=== PATIENT | male | born 1990 | race Caucasian/White ===

== ENCOUNTER 2020-09-11 14:19 | Inpatient (IN) | payer OTHER ==
[~2020-09-11] VITALS: Ht 182.9 cm; Wt 137.4 kg
[2020-09-11 14:29] VITALS: Ht 182.9 cm; Wt 137.4 kg
--- NOTE | 2020-09-11 14:37 | NUR ---
PT BIB [facility] FOR GENERALIZED WEAKNESS RECENTLY DIAGNOSED WITH CHF. PT DENIES SOB NOW, HOWEVER EXERTION WITH INCREASED ACTIVITY. LARGE ABD GIRTH NOTED. BLE PITTING EDEMA. PT REPORTS TAKING ELIQUIS "TO HELP SLOW DOWN HEART RATE" MSE COMPLETED BY DR VALERA IV TO BACK OF R FA INSERTED BY [facility] PHARMACY TECH TO ED. PT SITTING IN POSITION OF COMFORT WILL MONITOER
--- NOTE | 2020-09-11 14:41 | NUR ---
LAB AT BEDSIDE FOR BLOOD DRAW
[2020-09-11 14:48] LABS: BASOPHIL % 1.3 % (0.2-1.5); PLATELET COUNT 342 x10^3mcL (152-348)
[2020-09-11 14:50] LABS: RED CELL DISTRIBUTION WIDTH 15.3 % (12.1-16.2)
[2020-09-11 15:27] LABS: CALCIUM 8.3 mg/dL (8.5-10.1); CARBON DIOXIDE 25.6 mmol/L (21-32); CHLORIDE SERUM 100 mmol/L (98-107); CREATININE SERUM 1.3 mg/dL (0.7-1.3); GFR1 > 60 mL/min; GLUCOSE SERUM 117 mg/dL (74-106); POTASSIUM SERUM 4.3 mmol/L (3.5-5.1); SODIUM SERUM 135 mmol/L (136-145)
[2020-09-11 15:29] LABS: ALBUMIN 3.1 g/dL (3.4-5.0); ALKALINE PHOSPHATASE 119 U/L (46-116); ALT/SGPT 41 U/L (16-63); AST/SGOT 26 U/L (15-37); MAGNESIUM 2.2 mg/dL (1.8-2.4); PHOSPHOROUS 4.7 mg/dL (2.5-4.9); TOTAL PROTEIN, SERUM 6.7 g/dL (6.4-8.2); ovalocyte/elliptocyte 1+; rbc morphology (normal/abnorm) ABNORMAL (NORMAL); tear drop cell (dacryocyte) 1+
--- NOTE | 2020-09-11 15:35 | NUR ---
PT C/O R LEG PAIN POST ULTRASOUND, PT GIVEN NORCO 10MG/325MG PO PER DR SAUNDERS VERBAL ORDERS. WILL MONITOR
--- NOTE | 2020-09-11 16:13 | NUR ---
PER PT, PAIN TO R LEG RESOLVED. PT RESTING COMFORTABLY NO DISTRESS ON FULL CM, SINUS TACH AT 100, VSS WILL MONITOR
--- NOTE | 2020-09-11 17:45 | NUR ---
PT LYING IN BED COMFORTABLY WARM BLANKET PROVIDED. NO DISTRESS REMAINS ON FULL CM VSS WILL CONTINUE TO MONITOR
[2020-09-11] MEDS ORDERED: ELIQUIS5 MG PO (19:01)
[2020-09-11] MEDS ORDERED: LISINOPRIL10 MG PO (19:02)
[2020-09-11] MEDS ORDERED: LASIX20 MG PO (19:02)
[2020-09-11] MEDS ORDERED: CARVEDILOL ER40 MG PO (19:03)
--- NOTE | 2020-09-11 19:04 | NUR ---
REPORT GIVEN TO SOBAI ROQUE RESUMING CARE OF PT AT THIS TIME.
--- NOTE | 2020-09-11 19:12 | NUR ---
REPORT RECEIVED FROM MEAGHAN ROQUE TO ASSUME CARE OF PT AT THIS TIME
--- NOTE | 2020-09-11 20:21 | NUR ---
PT IN [facility] RESTING SUPINE, PT REPORTS R THIGH PAIN 03/29, STATING THAT HE "FEELS PINS AND NEEDLES, A BURNING SENSATION, AND THAT MY UPPER THIGH FEELS LIKE IT FILLS UP AND SWELLS AND THIS JUST STARTED THIS LAST THURSDAY WHEN I WAS AT [facility] FOR 4 DAYS." MADE AWARE
--- NOTE | 2020-09-11 22:00 | NUR ---
ADMITTED TO ROOM 256B. NO RESPIRATORY DISTRESS. AA&OX4. RECENT PREAMTURE DEMISE AND VERBALIZED FEELING DEPRESSED THIS PAST YEAR. NO SUICIDAL IDEATION. VERBALIED SLEEP APNEA BUT NO SLEEPSTUDY OF YET. SCHEDULED SOON. NO CP, C/O RIGHTUPPER LEG PAIN X1WEEK. ORIENTED TO ROOM. CALL LIGHT WITHINREACH
[2020-09-12] VITALS (7 sets, daily range): BP systolic 105–122; BP diastolic 70–82
--- NOTE | 2020-09-12 06:00 | NUR ---
PATIENT HAD 6 BEATS RUN OF VTACH. PAGED X3 TIMES AND THEN SPOKE WITH DR. CRUZ, HE WILL FOLLOW UP WITH [facility]. ALSO PT C/O PAIN TO RIGHT THIGH 02/26, NEW ORDER FOR NORCO CARRIED OUT AND GIVEN. PT DIDNT SLEEP WELL, WILL REQUEST SLEEPING PILL FOR TONIGHT IF STILL HERE
[2020-09-12 06:46] LABS: BASOPHIL % 0.9 % (0.2-1.5); PLATELET COUNT 282 x10^3mcL (152-348)
[2020-09-12 07:13] LABS: CALCIUM 8.6 mg/dL (8.5-10.1); CARBON DIOXIDE 26.6 mmol/L (21-32); CHLORIDE SERUM 101 mmol/L (98-107); CREATININE SERUM 1.2 mg/dL (0.7-1.3); GFR1 > 60 mL/min; GLUCOSE SERUM 87 mg/dL (74-106); MAGNESIUM 2.1 mg/dL (1.8-2.4); POTASSIUM SERUM 3.6 mmol/L (3.5-5.1); SODIUM SERUM 137 mmol/L (136-145)
[2020-09-12 07:28] LABS: RED CELL DISTRIBUTION WIDTH 15.4 % (12.1-16.2)
--- NOTE | 2020-09-12 07:47 | NUR ---
PT RESTING IN BED, AOX4, RESP E/U ON RA. DENIES CHEST PAIN OR SOB AT THIS TIME. NO ACUTE DISTRESS NOTED. ON TELE [address], HR: 104. IV SALINE LOCK TO RFA PATENT/INTACT W/ NO ERYTHEMA/EDEMA. BED IN LOWEST POSITION AND CALL LIGHT WITHIN REACH. WILL CONTINUE TO MONITOR.
--- NOTE | 2020-09-12 12:20 | NUR ---
PT RESTING IN BED, AXO4, RESP E/U ON RA. DENIES SOB OR CHEST PAIN. NO ACUTE DISTRESS NOTED. WILL CONTINUE TO MONITOR.
--- NOTE | 2020-09-12 18:11 | NUR ---
PT IN BED HAVING DINNER, AOX4, RESP E/U ON RA. DENIES SOB, CHEST PAIN OR N/V. NO ACUTE DISTRESS NOTED. IV TO RFA PATENT/INTACT, WNL. BED IN LOWEST POSITION AND CALL LIGHT WITHIN REACH. WILL ENDORSE TO ONCOMING NURSE.
--- NOTE | 2020-09-13 00:15 | NUR ---
PT SLEEPING IN BED. RR EVEN AND UNLABORED. NO ADN. BED LOCKED AND LOWERED. CALL LIGHT WITHIN REACH. WILL CONTINUE TO MONITOR.
[2020-09-13 05:40] VITALS: BP 123/80
--- NOTE | 2020-09-13 06:35 | NUR ---
PT RESTING IN BED. A&O X4. RR EVEN AND UNLABORED. DENIES CHEST PAIN/PRESSURE.NO ADN. BED LOCKED AND LOWERED. CALL LIGHT WITHIN REACH. WILL ENDORSE TO ONCOMING NURSE.
[2020-09-13 06:48] LABS: PLATELET COUNT 294 x10^3mcL (152-348)
[2020-09-13 06:56] LABS: RED CELL DISTRIBUTION WIDTH 15.4 % (12.1-16.2)
[2020-09-13 07:11] LABS: CALCIUM 9.2 mg/dL (8.5-10.1); CARBON DIOXIDE 28.7 mmol/L (21-32); CHLORIDE SERUM 101 mmol/L (98-107); CREATININE SERUM 1.2 mg/dL (0.7-1.3); GFR1 > 60 mL/min; GLUCOSE SERUM 97 mg/dL (74-106); MAGNESIUM 2.2 mg/dL (1.8-2.4); POTASSIUM SERUM 3.5 mmol/L (3.5-5.1); SODIUM SERUM 137 mmol/L (136-145)
--- NOTE | 2020-09-13 07:50 | NUR ---
RECEIVED REPORT FROM [employer] PROGRAM DIRECTOR RN. PT LAYING IN BED. NO ACUTE DISTRESS NOTED AT THIS TIME. AAOX4. C/O OF SLIGHT PAIN ON BLE, EDEMA NOTED +2. ON TELE, DENIES CP AND PRESSURE. C/O SOB, ON RA, NO COUGHNG NOTED. STATED R THIGH SOMETIMES FEELS LIKE "PINS AND NEEDLES" AND SLIGHT PAIN. NO N/V/D NOTED AT THIS TIME. ABD SOFT AND NONTENDER. NO C/O DYSURIA. PT AMBULATORY BUT HAS GENERALIZED WEAKNESS. IV TO R ARM NOT PATENT, WILL INTITIATE A NEW IV. CALL LIGHT WITHIN REACH. BED IN LOWEST POSITION. ALL NEEDS ATTENDED AT THIS TIME.
--- NOTE | 2020-09-13 09:10 | NUR ---
STUDENT NURSE INITIATED A NEW IV, LH 20G. PT TOLERATED WELL. DRESSING CDI.
[2020-09-13 09:12] VITALS: BP 118/74
[2020-09-13 13:21] VITALS: BP 105/68
[2020-09-13 17:16] VITALS: BP 105/66
--- NOTE | 2020-09-13 17:25 | NUR ---
SPOKE WITH DR. MCFARLAND ON THE TELEPHONE TO STATE PTS CONCERN FOR CONSTIPATION. GAVE ORDERS FOR PO MIRALAX DAILY PRN, AND COLACE PO 250 MG BID. WILL PUT ORDERS IN. NO ADDITIONAL ORDERS AT THIS TIME.
--- NOTE | 2020-09-13 18:35 | NUR ---
PT CURRENTLY IN THE RESTROOM. NO ACUTE DISTRESS NOTED, AAOX4. DENIED PAIN THROUGHOUT SHIFT. DR. SAGASTUME AND DR. MCFARLAND ABLE TO SEE AND DISCUSS POC FOR PT. PT AWARE. ON TELE, SR-ST THROUGHOUT SHIFT, 6 BEATS OF VTACH NOTED IN CHART AND DR. SAGASTUME AWARE. VOIDS FREELY. ABLE TO AMBULATE TO RESTROOM. IV INTACT AND PATENT, SALINE LOCKED. CALL LIGHT WITHIN REACH. BED IN LOWEST POSITION. WILL ENDORSE TO LOCKER ROOM ATTENDANT RN.
--- NOTE | 2020-09-13 20:03 | NUR ---
RECEIVED PT FROM DAY SHIFT NURSE. PT IS AWAKE AND RESTING IN BED AT THIS TIME. PT IS A/OX4, ABLE TO MAKE NEEDS KNOWN. ON TELE #[address] SR W/ ST. PULSES ARE PALPABLE IN ALL EXTREMITIES. 2+ EDEMA ON BLE. LUNG SOUNDS CTA. O2 SAT OF 96% ON RA. BOWEL SOUNDS ACTIVE ON ALL 4Q'S. PT VOIDS. PT HAS GEN WEAKNESS. PT SKIN IS CDI. IV LOCATED ON THE L HAND CURRENTLY ON SALINE LOCK. PT APPEARS CALM AND IS COOPERATIVE AT THIS TIME. CALL LIGHT W/IN REACH. BED LOCKED AND IN LOWEST POSITION. INFORMED PT TO USE CALL LIGHT NEEDED.
[2020-09-13 20:34] VITALS: BP 107/69
--- NOTE | 2020-09-14 00:07 | NUR ---
PT IS RESTING IN BED AT THIS TIME W/ EYES CLOSED. RR EVEN AND UNLABORED. NO C/O OF CHEST PAIN, SOB OR YBARRA. O2 SAT OF 96% ON RA. CALL LIGHT W/IN REACH. BED LOCKED AND IN LOWEST POSITION.
[2020-09-14 04:55] VITALS: BP 99/74
--- NOTE | 2020-09-14 06:51 | NUR ---
PT IS RESTING IN BED W/ EYES CLOSED AT THIS TIME. RR EVEN AND UNLABORED. NO C/O CHEST PAIN,YBARRA OR SOB. O2 SAT OF 97% ON RA. CALL LIGHT W/IN REACH. BED LOCKED AND IN LOWEST POSITION. PT NEEDS WERE MET THROUGHOUT SHIFT. WILL ENDORSE CARE TO ONCOMING SHIFT NURSE.
[2020-09-14 06:52] LABS: BASOPHIL % 0.9 % (0.2-1.5); PLATELET COUNT 278 x10^3mcL (152-348)
[2020-09-14 07:02] LABS: RED CELL DISTRIBUTION WIDTH 15.2 % (12.1-16.2)
[2020-09-14 07:20] LABS: CALCIUM 8.9 mg/dL (8.5-10.1); CARBON DIOXIDE 27.7 mmol/L (21-32); CHLORIDE SERUM 100 mmol/L (98-107); CREATININE SERUM 1.3 mg/dL (0.7-1.3); GFR1 > 60 mL/min; GLUCOSE SERUM 141 mg/dL (74-106); POTASSIUM SERUM 3.6 mmol/L (3.5-5.1); SODIUM SERUM 136 mmol/L (136-145)
[2020-09-14 09:05] VITALS: BP 109/82
[2020-09-14] MEDS ORDERED: LASIX40 MG PO ×2 (12:21→15:01)
[2020-09-14] MEDS ORDERED: ALDACTONE25 MG PO ×2 (12:22→15:01)
[2020-09-14] MEDS ORDERED: FORTAMET500 M1 PO ×2 (12:25→18:47)
[2020-09-14 13:05] VITALS: BP 105/62
[2020-09-14 13:59] VITALS: BP 139/82
--- NOTE | 2020-09-14 14:09 | NUR ---
0800:PT. RECEIVED IN BED ALERT AND ORIENTED*4.CARE ASSURED.NO ACUTE DISTRESS NOTED.NO SOB.E/U BREATHS NOTED.ON ROOM AIR.ST ON THE MONITOR.B/P STABLE.AFEBRILE.POSSIBLE D/C HOME TODAY. 1400:PT A/O*4.NO SOB NOTED, ON ROOM AIR.D/C PLANNING HOME IN PROGRESS.NO PRESCRIPTION AVAILABLE.DR MCFARLAND PAGED FOR PRESCRIPTION.WAITING FOR CALL BACK.PT AWARE AWARE OF PLAN OF CARE TO D/C HOME.
[2020-09-14 16:45] VITALS: BP 107/74
--- NOTE | 2020-09-14 17:31 | NUR ---
1700:PT. D/C HOME IN STABLE CONDITION.NO SOB OR RESP. DISTRESS, NO PAIN.D/C INSTRUCTIONS GIVEN TO PT. INCLUDING FOLLOW UP PLAN WITH CARDIO/PULM. CONSULTS.ALL BELONGING SENT HOME WITH PT.PRESCRIPTIONS SENT TO PT'S PHARMACY BY DR MCFARLAND.PT VERBALIZE UNDERSTANDING OF D/C INSTRUCTIONS.ACCOMPANY BY MYSELF, PT TAKEN TO THE LOBBY VIA W/C TO HIS FAMILY WAITING TO TAKE HIM HOME.
== END 2020-09-14 17:03 | disposition home or self-care (01) | DRG 194 ==
LOC: ED 14:19 → DU 17:58
PROVIDERS: Emergency Medicine; ADMIT Internal Medicine; ATTEND Internal Medicine
DX: I11.0 Hypertensive heart disease with heart failure (principal); E66.01 Morbid (severe) obesity due to excess calories; I42.0 Dilated cardiomyopathy; Z20.822 Contact with and (suspected) exposure to COVID-19; I50.23 Acute on chronic systolic (congestive) heart failure; E11.9 Type 2 diabetes mellitus without complications; Z79.899 Other long term (current) drug therapy; Z71.3 Dietary counseling and surveillance; Z83.3 Family history of diabetes mellitus; I48.0 Paroxysmal atrial fibrillation; Z68.42 Body mass index [BMI] 45.0-49.9, adult
CPT/HCPCS: 36600; 82962; 83880; G0378; J1650; J1940